=== PATIENT | male | born 1980 | race Two or more races ===

== ENCOUNTER 2018-05-24 19:27 | Emergency (ER) | payer MEDICAID ==
[~2018-05-24] VITALS: Ht 170.2 cm; Wt 75.0 kg
[2018-05-24 20:52] LABS: BASOPHILS # (AUTO) 0.04 x10^3/uL (0-0.1); BASOPHILS % (AUTO) 1 % (0-1); EOSINOPHILS # (AUTO) 0.17 x10^3/uL (0-0.4); EOSINOPHILS % (AUTO) 2 % (1-7); LYMPHOCYTES % (AUTO) 49 % (22-44); MD NO; MEAN CORPUSCULAR HEMOGLOBIN 28.2 pg (27.5-34.5); MEAN CORPUSCULAR HGB CONC 33.2 g/dL (33.2-36.2); MEAN CORPUSCULAR VOLUME 84.8 fL (81-97); MEAN PLATELET VOLUME 7.3 fL (7.4-10.4); MONOCYTES # (AUTO) 0.69 x10^3/uL (0.2-0.8); MONOCYTES % (AUTO) 9 % (2-9); NEUTROPHILS # (AUTO) 2.84 x10^3/uL (1.8-6.8); NEUTROPHILS % (AUTO) 39 % (42-75); PLATELET COUNT 288 x10^3/uL (130-400); RED BLOOD COUNT 5.42 x10^6/uL (4.38-5.82); RED CELL DISTRIBUTION WIDTH 13.3 % (9.4-14.8)
[2018-05-24 20:53] LABS: ALBUMIN 4.1 g/dL (3.4-5.0); ANION GAP 4 mmol/L (5-15); CALCIUM 9.2 mg/dL (8.5-10.1); CHLORIDE 105 mmol/L (98-107); CREATININE 0.79 mg/dL (0.7-1.3)
[2018-05-24 20:57] LABS: INTERNATIONAL NORMALIZED RATIO 1.04 (0.93-1.1); PROTHROMBIN TIME 10.8 Seconds (9.6-11.5)
[2018-05-24] MEDS ORDERED: IBUPROFEN 200 MG TABLET ONE (22:19)
[2018-05-24] MEDS ORDERED: IBUPROFEN 200 MG TABLET PO ONE (22:30)
== END 2018-05-24 22:27 | disposition home or self-care (01) ==
LOC: ED 22:21
DX: S86.911A Strain of unspecified muscle(s) and tendon(s) at lower leg level, right leg, initial encounter (principal); X58.XXXA Exposure to other specified factors, initial encounter; Y93.89 Activity, other specified; Y99.8 Other external cause status; Y92.89 Other specified places as the place of occurrence of the external cause
CPT/HCPCS: 36415; 80048; 82040; 85025; 85610; 85730; 99285

== ENCOUNTER 2020-09-22 15:27 | Emergency (ER) | payer MEDICAID, OTHER ==
[~2020-09-22] VITALS: Ht 170.2 cm; Wt 74.4 kg
[2020-09-22 15:29] VITALS: BP 163/91
== END 2020-09-22 16:31 | disposition home or self-care (01) ==
LOC: ED 16:06
DX: K64.8 Other hemorrhoids (principal); R10.2 Pelvic and perineal pain
CPT/HCPCS: 99283